=== PATIENT | female | born 1940 | race Caucasian/White ===

== ENCOUNTER → 2017-03-01 | Outpatient (CLI) | payer MEDICARE ==
--- NOTE | 2017-03-04 13:40 | MM ---
Reason for exam: screening (asymptomatic). Last mammogram was performed 1 year ago. History: Patient is postmenopausal and has history of endometrial cancer at age 30. Family history of breast cancer in 2 paternal aunts. Took hormonal contraceptives for 10 years beginning at age 30. MG 3D Screening Mammo W/Cad Bilateral CC and MLO view(s) were taken. Prior study comparison: February 29, 2016, bilateral MG 3d screening mammo w/cad. February 22, 2015, bilateral MG screening mammo w CAD. There are scattered fibroglandular densities. No suspicious findings. No significant changes when compared with prior studies. ASSESSMENT: Negative, BI-RAD 1 RECOMMENDATION: Routine screening mammogram of both breasts in 1 year.
== END | disposition home or self-care (01) ==
LOC: RADMAMWWP 10:32
PROVIDERS: ATTEND Family Medicine
DX: Z12.31 Encounter for screening mammogram for malignant neoplasm of breast (principal)
CPT/HCPCS: 77063; G0202

== ENCOUNTER → 2017-07-26 | Outpatient (CLI) | payer MEDICARE ==
--- NOTE | 2017-07-26 13:29 | CT ---
EXAMINATION TYPE: CT sinus wo con DATE OF EXAM: 07/26/2017 COMPARISON: NONE HISTORY: Sinusitis CT DLP: 539 mGycm. Automated Exposure Control for Dose Reduction was Utilized. TECHNIQUE: CT scan of the sinuses is performed without contrast, axial images are obtained, coronal r eformatted images are also reviewed. FINDINGS: The paranasal sinuses including the frontal, ethmoid, sphenoid, and maxillary sinuses bilat erally are well-aerated without abnormal opacification. The ostiomeatal complex is patent bilaterall y on the coronal images. Small Abdiaziz cells are seen bilaterally. No radha bullosa. No mucosal hyper trophy of the nasal turbinates. There is mild curvature of the nasal septum with portions leftward de viated and portions rightward deviated. Maxillary spine and nasal bone are intact. No secretions with in the posterior nasopharynx. Ocular lenses are surgically absent. Visualized portion of mastoid air cells show no abnormal opacification. The globes are intact bilate rally. Atherosclerosis is incidentally noted of the intracranial vasculature. IMPRESSION: 1. The sinuses are clear and the ostiomeatal complex is patent bilaterally. 2. Incidentally noted bilateral nonobstructing Abdiaziz cells. 3. Minimal nasal septal deviation as described above.
== END | disposition home or self-care (01) ==
LOC: RADCTMAIN 12:25
PROVIDERS: ATTEND Family Medicine
DX: J32.4 Chronic pansinusitis (principal)
CPT/HCPCS: 70486

== ENCOUNTER → 2018-03-14 | Outpatient (CLI) | payer MEDICARE ==
--- NOTE | 2018-03-18 13:23 | MM ---
Reason for exam: screening (asymptomatic). Last mammogram was performed 1 year ago. History: Patient is postmenopausal and has history of endometrial cancer at age 30. Family history of breast cancer in 2 paternal aunts. Took hormonal contraceptives for 10 years beginning at age 30. Physical Findings: A clinical breast exam by your physician is recommended on an annual basis and results should be correlated with mammographic findings. MG 3D Screening Mammo W/Cad Bilateral CC and MLO view(s) were taken. Prior study comparison: March 01, 2017, bilateral MG 3d screening mammo w/cad. February 29, 2016, bilateral MG 3d screening mammo w/cad. There are scattered fibroglandular densities. There are benign appearing vascular calcifications bilaterally. There is chronic nodularity in the left breast. There is no discrete abnormality. ASSESSMENT: Benign, BI-RAD 2 RECOMMENDATION: Routine screening mammogram of both breasts in 1 year.
== END | disposition home or self-care (01) ==
LOC: RADMAMWWP 13:01
PROVIDERS: ATTEND Family Medicine
DX: Z12.31 Encounter for screening mammogram for malignant neoplasm of breast (principal)
CPT/HCPCS: 77063; 77067

== ENCOUNTER → 2019-03-19 | Outpatient (CLI) | payer MEDICARE ==
--- NOTE | 2019-03-19 14:58 | XR ---
EXAMINATION TYPE: XR abdomen 2V DATE OF EXAM: 03/19/2019 CLINICAL HISTORY: Generalized abdominal pain with nausea and fatigue. Constipation for a period TECHNIQUE: Supine and upright views of the abdomen are obtained. COMPARISON: None. FINDINGS: Scattered gas is seen in non-distended stomach and small bowel loops. Gas and fecal mater ial is seen in non-distended colon. Multilevel spurring and disc space narrowing throughout the spine is present. No pneumoperitoneum. Slightly elevated right hemidiaphragm. IMPRESSION: Overall nonobstructive bowel gas pattern.
== END | disposition home or self-care (01) ==
LOC: RADXRYALE 14:35
PROVIDERS: ATTEND Family Medicine
DX: K59.00 Constipation, unspecified (principal); R10.813 Right lower quadrant abdominal tenderness; R10.814 Left lower quadrant abdominal tenderness
CPT/HCPCS: 74019

== ENCOUNTER 2019-05-11 11:12 | Day surgery (SDC) | payer MEDICARE ==
[2019-05-07 11:07] VITALS: BMI 28.0
[~2019-05-11 11:12] MED LIST: DEXAMETHASONE SOD PHOSPHATE 10 MG/ML 1 ML VIAL IV ONE; INDOMETHACIN 50MG SUPPOSITORY RECTAL ONE; LACTATED RINGERS 1,000 ML IV NR; LACTATED RINGERS 1,000 ML IV SCH; LEVOFLOXACIN 500MG-D5W PMX 500 MG in DEXTROSE/WATER 1 100ML.BAG IVPB NR; LIDOCAINE 1% 20 ML VIAL (10MG/ML) FOR IV START INTRADERMA PRN; MORPHINE SULFATE 2 MG/ML SYRINGE IV PRN; ONDANSETRON 4 MG/2 ML VIAL IVP PRN
[2019-05-11] MEDS ORDERED: PROPOFOL 10 MG/ML 20 ML VIAL IV ONE (13:14)
[2019-05-11] MEDS ORDERED: MIDAZOLAM 2 MG/2 ML VIAL ONE (13:14)
[2019-05-11] MEDS ORDERED: ROCURONIUM BROMIDE 10 MG/ML 10 ML VIAL IV ONE (13:14)
[2019-05-11] MEDS ORDERED: PHENYLEPHRINE-0.9% NACL SYG 1 MG/10 ML SYRINGE ONE (13:14)
[2019-05-11] MEDS ORDERED: GLYCOPYRROLATE 0.2 MG/ML 2 ML VIAL ONE (13:14)
[2019-05-11] MEDS ORDERED: fentaNYL (PF) 50 MCG/ML 2 ML AMP ONE (13:14)
[2019-05-11] MEDS ORDERED: NEOSTIGMINE 1 MG/ML 10 ML VIAL ONE (13:14)
[2019-05-11] MEDS ORDERED: LIDOCAINE 1% INJ 10MG/ML (20 ML MDV) ONE (13:14)
--- NOTE | 2019-05-11 14:38 | P.PCN ---
Date of Procedure: 05/11/19 Description of Procedure: Brief history: 78-year-old female who is seen in the outpatient setting for ERCP. The patient initially had MRCP performed in evaluation of abdominal pain with findings of cholelithiasis, choledocholithiasis and bile duct dilation. The patient had been reporting periumbilical and right upper quadrant pain over the past 3-4 months. She is scheduled with the surgical service to have a cholecystectomy after ERCP. Procedure performed: ERCP with failed/aborted Preoperative diagnoses: Choledocholithiasis, dilated CBD IV sedation per anesthesia Estimated blood loss: Minimal. Procedure: After informed consent was obtained from the patient and after the risks benefits and complications including bleeding perforation and pancreatitis explained in detail the patient was brought into the endoscopy unit. The patient was placed in prone position and IV conscious sedation was administered by anesthesia under continuous monitoring. The Olympus side-viewing duodenoscope was then inserted into the mouth and esophagus intubated without any difficulty. The scope was gradually advanced into the stomach and duodenum. The second lead difficult due to the patient having a large hiatal hernia with the majority of her stomach in the thoracic cavity. The duodenum was able to be intubated with visualization of the diverticula. However the procedure was aborted as the scope was unable to be maintained in adequate position due to the large hiatal hernia. The ampulla was not visualized. The patient tolerated the procedure well. Impression: Failed/aborted ERCP due to technical difficulties secondary to a large hiatal hernia Recommendations: The findings of this examination were discussed with the patient as well as a family, her and son-in-law. Okay to resume diet. Okay to resume medications. The patient will be sent to [facility] in the advanced endoscopy team for ERCP. She can follow up with Dr. Shrama, after the procedure for cholecystectomy.
[2019-05-11 14:47] VITALS: TEMP 97
[2019-05-11] MEDS ORDERED: ONDANSETRON 4 MG/2 ML VIAL IVP ONE (15:52)
[2019-05-11 16:23] VITALS: RESP 16
[2019-05-11 16:34] VITALS: BP 141/60; PULSE 58
== END 2019-05-11 17:02 | disposition home or self-care (01) ==
LOC: ORWHC2ENDO 11:12
PROVIDERS: ATTEND Internal Medicine
DX: K80.50 Calculus of bile duct without cholangitis or cholecystitis without obstruction (principal); K44.9 Diaphragmatic hernia without obstruction or gangrene; I10 Essential (primary) hypertension; E78.5 Hyperlipidemia, unspecified; Z87.891 Personal history of nicotine dependence; K21.9 Gastro-esophageal reflux disease without esophagitis; Z79.51 Long term (current) use of inhaled steroids; Z79.899 Other long term (current) drug therapy; Z79.82 Long term (current) use of aspirin
CPT/HCPCS: 93005; 43260; J2250; J1100; J2710; J2405; J1956; J2001; J3010; J2370; J2704

== ENCOUNTER → 2019-07-16 | Day surgery (SDC) | payer MEDICARE ==
[2019-07-14 16:43] VITALS: BMI 27.8
[~2019-07-16] MED LIST changes: +BUPIVACAIN-EPI 0.25%-1:200,000 30 ML VIAL SQ ONE; +GLYCOPYRROLATE 0.2 MG/ML 2 ML VIAL ONE; +HEPARIN SODIUM,PORCINE 5,000 UNIT/ML 1 ML VIAL SQ ONE; +HYDROcodone/APAP 5-325MG 1 EACH TAB PO ONE; +HYDROmorphone 0.5 MG/0.5 ML SYRINGE IVP PRN; -INDOMETHACIN 50MG SUPPOSITORY RECTAL ONE; -LACTATED RINGERS 1,000 ML IV NR; +LACTATED RINGERS 1,000 ML IV ONE; -LEVOFLOXACIN 500MG-D5W PMX 500 MG in DEXTROSE/WATER 1 100ML.BAG IVPB NR; +LIDOCAINE 1% 20 ML VIAL (10MG/ML) FOR IV START INTRADERMA ONE; -LIDOCAINE 1% 20 ML VIAL (10MG/ML) FOR IV START INTRADERMA PRN; +LIDOCAINE 1% INJ 10MG/ML (20 ML MDV) ONE; +MIDAZOLAM 2 MG/2 ML VIAL IV PRN; +MIDAZOLAM 2 MG/2 ML VIAL ONE; -MORPHINE SULFATE 2 MG/ML SYRINGE IV PRN; +NEOSTIGMINE 1 MG/ML 10 ML VIAL ONE; +ONDANSETRON 4 MG/2 ML VIAL IVP ONE; -ONDANSETRON 4 MG/2 ML VIAL IVP PRN; +PHENYLEPHRINE-0.9% NACL SYG 1 MG/10 ML SYRINGE ONE; +PROPOFOL 10 MG/ML 20 ML VIAL IV ONE; +ROCURONIUM BROMIDE 10 MG/ML 10 ML VIAL IV ONE; +SUCCINYLCHOLINE CHLORIDE 100 MG/5 ML SYR IV ONE; +fentaNYL (PF) 50 MCG/ML 2 ML AMP ONE
--- NOTE | 2019-07-16 16:03 | P.OP ---
Date of Procedure: 07/16/19 Preoperative Diagnosis: Symptomatic Cholelithiasis Cholecystitis choledocholithiasis Postoperative Diagnosis: Symptomatic Cholelithiasis Cholecystitis choledocholithiasis Procedure(s) Performed: laparoscopic cholecystectomy Anesthesia: GREGORIO Surgeon: Buzz Sharma Pathology: other (gallbladder and contents) Condition: stable Disposition: same day Indications for Procedure: 78-year-old female initially presented to the surgery clinic with complaints of right upper quadrant and abdominal tenderness. On workup, there was concern for choledocholithiasis. She did have an MRCP that did confirm choledocholithiasis. She did undergo an ERCP and did have a stent placed. Secondary to these issues, laparoscopic cholecystectomy was planned. Stent is still in place. The patient was explained the risks, benefits and alternatives to the procedure and did provide consent prior to attending the operating suite. Operative Findings: cholelithiasis, inflamed gallbladder Description of Procedure: the patient was brought into the operating suite and placed in supine position on the operating table. Sedation was provided by anesthesia patient went into tracheal intubation. The patient was then prepped and draped in regular sterile fashion. An infraumbilical incision was made dissection was carried to the fascia the fascia was incised and a 12 mm trocar was placed. Pneumoperitoneum was achieved. 3 additional 5 mm ports were placed. One was placed in the subxiphoid location and 2 were placed in the right upper quadrant. The gallbladder was then grasped and retracted appropriately. It was noted to be inflamed with some surrounding adhesive tissue. This was dissected free with blunt dissection. Dissection was carried along the infundibulum to the cystic duct. Both the cystic duct and cystic artery were skeletonized. 2 clips were placed proximally and the cystic duct one was placed distally and the cystic duct was ligated. Similarly, 2 clips were placed proximally and the cystic artery one was placed distally and the cystic artery was ligated. Cautery was used to dissect the gallbladder from the gallbladder fossa. Hemostasis was noted to be maintained. The gallbladder was then placed in an Endo Catch bag and removed from the abdomen from the infra umbilical port site. Irrigation was then placed in the right upper quadrant. He was stasis was noted to be maintained. Snow hemostatic agent was used. The infra umbilical incision fascia site was closed with 0 Vicryl suture using a Silviano Herring device under direct visualization. Pneumoperitoneum was released and all ports removed from the abdomen. All skin incisions were closed with 4-0 Vicryl subcuticular suture. The patient tolerated procedure well was awakened in the operating suite and taken to postanesthesia care unit in stable condition.
[2019-07-16 16:13] VITALS: TEMP 98.4
[2019-07-16] MEDS: diphenhydrAMINE 50 MG/ML 1 ML VIAL IVP ONE ×2 (16:15→16:33)
[2019-07-16 17:48] VITALS: BP 144/78; PULSE 79; RESP 18
== END | disposition home or self-care (01) ==
LOC: OR 13:08
PROVIDERS: ATTEND Surgery
DX: K80.10 Calculus of gallbladder with chronic cholecystitis without obstruction (principal); Z90.710 Acquired absence of both cervix and uterus; I10 Essential (primary) hypertension; E78.49 Other hyperlipidemia; Z85.42 Personal history of malignant neoplasm of other parts of uterus; K21.9 Gastro-esophageal reflux disease without esophagitis; Z79.82 Long term (current) use of aspirin; Z79.899 Other long term (current) drug therapy; Z97.2 Presence of dental prosthetic device (complete) (partial)
CPT/HCPCS: 88304; 47562; J2250; J1200; J1100; J2710; J0690; J2405; J2001; J3010; J2370; J0330; J2704

== ENCOUNTER → 2019-09-30 | Outpatient (CLI) | payer MEDICARE ==
--- NOTE | 2019-10-01 13:40 | MM ---
Reason for exam: screening (asymptomatic). Last mammogram was performed 1 year and 7 months ago. History: Patient is postmenopausal and has history of endometrial cancer at age 30. Family history of breast cancer in 2 paternal aunts. Took hormonal contraceptives for 10 years beginning at age 30. Physical Findings: A clinical breast exam by your physician is recommended on an annual basis and results should be correlated with mammographic findings. MG 3D Screening Mammo W/Cad Bilateral CC and MLO view(s) were taken. Prior study comparison: March 14, 2018, bilateral MG 3d screening mammo w/cad. March 01, 2017, bilateral MG 3d screening mammo w/cad. There are scattered fibroglandular densities. Benign appearing bilateral vascular calcifications. No suspicious abnormality. No significant changes when compared with prior studies. ASSESSMENT: Benign, BI-RAD 2 RECOMMENDATION: Routine screening mammogram of both breasts in 1 year.
== END | disposition home or self-care (01) ==
LOC: RADMAMWWP 09:42
PROVIDERS: ATTEND Family Medicine
DX: Z12.31 Encounter for screening mammogram for malignant neoplasm of breast (principal)
CPT/HCPCS: 77063; 77067

== ENCOUNTER → 2021-07-13 | Outpatient (CLI) | payer MEDICARE ==
--- NOTE | 2021-07-13 17:46 | US ---
EXAMINATION TYPE: US thyroid st tissue head/neck DATE OF EXAM: 07/13/2021 COMPARISON: NONE CLINICAL HISTORY: 80-year-old female R94.6 abd thyroid function results. TECHNIQUE: Multiple sonographic images of the thyroid gland are obtained. FINDINGS: GLAND SIZE: Right Lobe: 5.2x1.7x2.2 cm Overall Parenchyma: homogenous Left Lobe: 4.8x1.7x2.2 cm Overall Parenchyma: homogeneous Isthmus Thickness: 0.3 cm NODULES RIGHT: # of nodules measured on right: 1 1. 2.7 X 1.5 x 1.7 cm, mid mid, mixed cystic and solid,, primarily solid isoechoic nodule, which is wider than tall, with ill-defined margins, with a couple echogenic foci LEFT: # of nodules measured on left: 2 1. 0.8 X 0.6 x 0.5 cm, mid lateral, solid or almost completely solid, isoechoic nodule, which is wi ann than tall, with ill-defined margins, without echogenic foci. 2. 0.9 X 1.1 x 0.6 cm, mid mid, hypoechoic nodule, which is wider than tall, with smooth margins, w ithout echogenic foci. ISTHMUS: # of nodules measured in the isthmus: 0 Bilateral neck scanned, no evidence of lymphadenopathy. Multiple calcifications seen throughout, Left lobe superior measuring 5 mm and within the Isthmus onofre suring 0.4cm IMPRESSION: Borderline thyromegaly with a few scattered nodules. The dominant nodule on the right measures 2.7 cm . FNA should be considered. The 1.1 cm nodule on the left should be followed.
== END | disposition home or self-care (01) ==
LOC: RADUSWWP 14:52
PROVIDERS: ATTEND Family Medicine
DX: R94.6 Abnormal results of thyroid function studies (principal); E04.2 Nontoxic multinodular goiter
CPT/HCPCS: 76536